=== PATIENT | male | born 1975 | race Two or more races ===

== ENCOUNTER → 2020-05-06 | Emergency (ER) | payer MEDICAID, OTHER ==
[~2020-05-06] VITALS: Ht 167.6 cm; Wt 76.2 kg
[~2020-05-06] MED LIST: ACETAMINOPHEN 325 MG TAB PO ONE; hydrOXYchloroQUINE SULFATE 200 MG TAB PO ONE
[2020-05-06 17:29] VITALS: BP 141/89
== END | disposition home or self-care (01) ==
LOC: ER 16:52
DX: U07.1 COVID-19 (principal)
CPT/HCPCS: 71045; 99284; U0003